=== PATIENT | male | born 1985 | race Hispanic/Latino ===

== ENCOUNTER 2017-04-13 20:53 | Emergency (ER) | payer SELFPAY ==
[2017-04-13 22:17] LABS: RAPID GROUP A STREP NEGATIVE (NEGATIVE)
== END 2017-04-13 22:46 | disposition home or self-care (01) ==
LOC: EDH 20:53
DX: J02.0 Streptococcal pharyngitis (principal)
CPT/HCPCS: 71046; 87804; 87880

== ENCOUNTER 2019-07-31 07:46 | Emergency (ER) | payer MEDICAID, OTHER ==
[2019-07-31] MEDS ORDERED: MECLIZINE HCL 25 MG TABLET ONE (08:25)
[2019-07-31] MEDS ORDERED: SODIUM CHLORIDE 0.9% 1000ML 1,000 ML IV ONE (08:26)
[2019-07-31 08:48] LABS: BASOPHILS % (AUTO) 0.4 % (0.0-5.0); EOSINOPHILS % (AUTO) 1.2 % (0.0-8.0); HEMATOCRIT 48.9 % (42-54); LYMPHOCYTES % (AUTO) 36.5 % (21.0-51.0); MEAN CORPUSCULAR HEMOGLOBIN 28.6 pg (27.0-33.0); MEAN CORPUSCULAR HGB CONC 33.3 g/dL (32.0-36.0); MEAN CORPUSCULAR VOLUME 85.8 fL (79-99); MONOCYTES % (AUTO) 9.2 % (3.0-13.0); NEUTROPHILS % (AUTO) 52.3 % (40.0-77.0); PLATELET COUNT (AUTO) 140 K/uL (130-400); RED CELL DISTRIBUTION WIDTH 13.7 % (11.0-15.5)
[2019-07-31 08:50] LABS: CREATININE 0.9 mg/dL (0.5-1.5); POTASSIUM 3.8 mmol/L (3.5-5.1)
[2019-07-31 08:54] LABS: ALBUMIN 3.9 g/dL (3.5-5.0); BILIRUBIN,TOTAL 0.6 mg/dL (0.2-1.0); TOTAL PROTEIN, SERUM 7.6 g/dL (6.0-8.3)
[2019-07-31 10:31] LABS: AMPHET/METH SCREEN,URINE NEGATIVE (NEGATIVE); BARBITURATE SCREEN, URINE NEGATIVE (NEGATIVE); BENZODIAZEPINES SCREEN,URINE NEGATIVE (NEGATIVE); CANNABINOID SCREEN,URINE NEGATIVE (NEGATIVE); COCAINE SCREEN,URINE NEGATIVE (NEGATIVE); OPIATE SCREEN,URINE NEGATIVE (NEGATIVE); PHENCYCLIDINE SCREEN,URINE NEGATIVE (NEGATIVE)
[2019-07-31] MEDS ORDERED: KETOROLAC TROMETHAMINE 30MG/ML ONE (10:39)
== END 2019-07-31 11:37 | disposition home or self-care (01) ==
LOC: EDH 07:46
DX: J01.00 Acute maxillary sinusitis, unspecified (principal); R51 Headache; H81.10 Benign paroxysmal vertigo, unspecified ear
CPT/HCPCS: 36415; 70450; 80053; 80305; 82550; 84484; 85025; 93005; 96361; 96374; 99285; J1885; J7030

== ENCOUNTER 2022-10-08 04:06 | Emergency (ER) | payer BC ==
[~2022-10-08] VITALS: Ht 185.4 cm; Wt 167.4 kg
[2022-10-08 05:02] LABS: SARS-CoV-2, RNA, NAAT NEGATIVE SARS CoV-2 (NEGATIVE)
[2022-10-08 05:05] LABS: INFLUENZA TYPE A Negative For Type A (NEGATIVE); INFLUENZA TYPE B Negative For Type B (NEGATIVE)
[2022-10-08 05:18] VITALS: BP 130/57; PULSE 64; RESP 16; O2SAT 97
== END 2022-10-08 05:22 | disposition home or self-care (01) ==
LOC: EDH 04:06
DX: G47.33 Obstructive sleep apnea (adult) (pediatric) (principal); E66.9 Obesity, unspecified; Z68.42 Body mass index [BMI] 45.0-49.9, adult; Z20.822 Contact with and (suspected) exposure to COVID-19
CPT/HCPCS: 99283; 87635; 87804 ×2; C9803

== ENCOUNTER 2023-07-09 02:56 | Emergency (ER) | payer BC ==
[~2023-07-09] VITALS: Ht 185.4 cm; Wt 166.5 kg
[2023-07-09 03:32] LABS: APPEARANCE,URINE CLEAR (CLEAR); BILIRUBIN,URINE NEGATIVE (NEGATIVE); COLOR,URINE COLORLESS (YELLOW); GLUCOSE, URINE (UA) NEGATIVE (NEGATIVE); KETONES,URINE NEGATIVE (NEGATIVE); LEUKOCYTE ESTERASE ,URINE NEGATIVE Leu/uL (NEGATIVE); NITRATE,URINE NEGATIVE (NEGATIVE); OCCULT BLOOD,URINE NEGATIVE (NEGATIVE); PROTEIN,URINE NEGATIVE (NEGATIVE); UROBILINOGEN,URINE 0.2 mg/dL (0.2-1.0)
[2023-07-09 03:38] LABS: BACTERIA,URINE RARE /HPF (None Seen); SQUAMOUS EPITHELIAL CELL,UR RARE /HPF (0-2)
[2023-07-09] MEDS: ONDANSETRON 4MG INJ IVP ONE (04:04)
[2023-07-09] MEDS: FAMOTIDINE 20MG VIAL IV ONE (04:05)
[2023-07-09 04:31] LABS: POTASSIUM 4.2 mmol/L (3.5-5.1)
[2023-07-09 05:45] LABS: BASOPHILS # (AUTO) 0.03 K/uL (0.00-0.20); BASOPHILS % (AUTO) 0.3 % (0.0-5.0); EOSINOPHILS # (AUTO) 0.23 K/uL (0.00-0.70); EOSINOPHILS % (AUTO) 2.3 % (0.0-8.0); HEMATOCRIT 45.1 % (42-54); IMMATURE GRANULOCYTE ABSOLUTE 0.12 K/uL (0-1); LYMPHOCYTES # (AUTO) 3.5 K/uL (1.0-4.8); LYMPHOCYTES % (AUTO) 33.9 % (21.0-51.0); MEAN CORPUSCULAR HEMOGLOBIN 28.6 pg (27.0-33.0); MEAN CORPUSCULAR HGB CONC 33.3 g/dL (32.0-36.0); MEAN CORPUSCULAR VOLUME 86.1 fL (79-99); MONOCYTES # (AUTO) 0.8 K/uL (0.1-1.0); MONOCYTES % (AUTO) 8.2 % (3.0-13.0); NEUTROPHILS # (AUTO) 5.5 K/uL (1.8-7.7); NEUTROPHILS % (AUTO) 54.1 % (40.0-77.0); PLATELET COUNT (AUTO) 188 K/uL (130-400); RED BLOOD CELL COUNT(AUTO) 5.24 MIL/uL (4.50-6.20); RED CELL DISTRIBUTION WIDTH 13.9 % (11.0-15.5); WHITE BLOOD COUNT (AUTO) 10.2 K/uL (4.8-10.8)
[2023-07-09 05:50] VITALS: BP 141/76; PULSE 63; RESP 16; O2SAT 100
[2023-07-09] MEDS ORDERED: DOCU-116 PO (06:00)
== END 2023-07-09 06:12 | disposition home or self-care (01) ==
LOC: EDH 02:56
DX: K59.00 Constipation, unspecified (principal)
CPT/HCPCS: 36415; 80048; 81001; 83690; 85025; 96374; 96375; J2405; J3490

== ENCOUNTER 2023-09-23 18:19 | Emergency (ER) | payer SELFPAY ==
[~2023-09-23] VITALS: Ht 185.4 cm; Wt 166.5 kg
[~2023-09-23 18:19] MED LIST: DOCU-116 PO
[2023-09-23 18:45] LABS: SARS-CoV-2, RNA, NAAT POSITIVE SARS CoV-2 (NEGATIVE)
[2023-09-23 18:48] LABS: INFLUENZA TYPE A Negative For Type A (NEGATIVE); INFLUENZA TYPE B Negative For Type B (NEGATIVE)
[2023-09-23] MEDS: ACETAMINOPHEN 500 MG TABLET PO ONE (19:49)
[2023-09-23] MEDS: 0.9%NACL 1000ML 1,000 ML IV ONE (19:49)
[2023-09-23 21:33] VITALS: BP 127/50; PULSE 74; RESP 18; O2SAT 97
== END 2023-09-23 21:35 | disposition home or self-care (01) ==
LOC: EDH 18:19
DX: U07.1 COVID-19 (principal)
CPT/HCPCS: 99285; 96360; 87635; 87804 ×2; J7030

== ENCOUNTER 2023-12-30 23:13 | Emergency (ER) | payer BC ==
[~2023-12-30] VITALS: Ht 185.4 cm; Wt 165.2 kg
--- NOTE | 2023-12-30 23:15 | NUR ---
UA CUP PROVIDED
[2023-12-30 23:45] LABS: APPEARANCE,URINE CLEAR (CLEAR); BILIRUBIN,URINE NEGATIVE (NEGATIVE); COLOR,URINE LIGHT-YELLOW (YELLOW); GLUCOSE, URINE (UA) NEGATIVE (NEGATIVE); KETONES,URINE NEGATIVE (NEGATIVE); LEUKOCYTE ESTERASE ,URINE NEGATIVE Leu/uL (NEGATIVE); NITRATE,URINE NEGATIVE (NEGATIVE); OCCULT BLOOD,URINE NEGATIVE (NEGATIVE); PROTEIN,URINE NEGATIVE (NEGATIVE)
--- NOTE | 2023-12-30 23:51 | HMCIMG ---
ABD 1VW HISTORY: The patient COMPARISON: None FINDINGS: A frontal projection of the abdomen was obtained. A nonspecific bowel gas pattern is seen. Fecal material is seen in the colon. IMPRESSION: 1. A nonspecific bowel gas pattern is seen. There are artifacts limiting evaluation.
[2023-12-30 23:57] LABS: ADD UA MICROSCOPIC YES
[2023-12-30 23:59] LABS: RBC,URINE 0-1 /HPF (0-1); SQUAMOUS EPITHELIAL CELL,UR RARE /HPF (0-2)
--- NOTE | 2023-12-31 00:01 | ERN ---
ED Note History of Present Illness Stated Complaint: FLANK PAIN, CONSTIPATION Chief Complaint: Multiple Complaints Time Seen by MD: 23:22 Dictation: This is a 38-year-old morbidly obese male who came into the ER complaining of left flank pain and severe constipation. His last bowel movement was on 12/28 but he stated that it was extremely hard and he was unable to expel . He denied any fever chills rigors no dysuria hematuria. No history of any nephrolithiasis. 98.2, heart rate is 78, respiratory rate 16, blood pressure 134/82 with a pulse oximetry of 99% on room Allergies: Coded Allergies: No Known Drug Allergies (Unverified Allergy, Unknown, 06/29/22) Home Meds Active Scripts Docusate Sodium (Colace) 100 Mg Capsule, 100 MG PO BID for 10 Days, #20 CAP Prov:GLORIA AUGUSTIN 07/09/23 Past Medical History Past Medical History: Constipation, Other Additional Past Medical Hx: SLEEP APNEA Surgical History: None Family History: Negative Social History: Negative RN Note Reviewed/Agreed w/PFSH: Yes Review of System Dictation Constitutional: Negative for fever,chills, and weight loss Eyes: Negative for injury, pain,redness, and discharge ENT: Negative for injury,pain or swelling Cardiovascular: Negative for chest pain, palpitations, and edema Respiratory: Negative for shortness of breath, cough, and wheezing, Abdomen/GI: Negative for abdominal pain, nausea, vomiting, diarrhea, and positive for constipation Back: Negative for injury and pain : Negative for injury, bleeding and discharge MS/Extremity: Negative for injury and deformity Skin: Negative for rash, and discoloration Neuro: Negative for headache, weakness, numbness, tingling, and seizure Psych: Negative for suicide ideation, homicidal ideation, and hallucinations Initial Vital Sign VS Vital Signs Date Time Temp Pulse Resp B/P (MAP) Pulse Ox O2 Delivery O2 Flow Rate FiO2 12/30/23 23:14 98.2 78 16 134/82 99 Room Air Physical Exam Dictation General: awake, alert, NAD Head/Face: Normocephalic, atraumatic Eyes: PERRL, EOMI, vision at baseline ENT: oral cavity clear, TMs clear, no signs of infection Neck: Trachea midline, supple, no nuchal rigidity Cardiovascular: RRR, normal S1/S2, No MRGs, no JVD Respiratory: CTAB, no respiratory distress, No rales or wheezes Abdomen: Soft, non-tender, non-distended, normal bowel sounds, no guarding or rebound. Skin: Warm, dry, normal turgor, no rash MS/Extremity: Pulses equal, no cyanosis, neurovascular intact, FROM Neuro: COAx4, GCS 15, strength 5/5, CN 2-12 intact, normal cerebellar exam, normal gait, Psych: Normal behavior, mood, and affect normal Extremities-trace edema without any palpable cords, Homans sign is negative Results (Laboratory/Radiology) Laboratory/Radiology Laboratory Tests Test 12/30/23 23:37 12/31/23 00:16 Urine Color LIGHT-YELLOW (YELLOW) Urine Appearance CLEAR (CLEAR) Urine pH 6.0 (5.0-8.0) Urine Specific Cadet 1.019 (1.001-1.031) Urine Protein NEGATIVE mg/dL (NEGATIVE) Urine Glucose (UA) NEGATIVE mg/dL (NEGATIVE) Urine Ketones NEGATIVE mg/dL (NEGATIVE) Urine Occult Blood NEGATIVE (NEGATIVE) Urine Nitrate NEGATIVE (NEGATIVE) Urine Bilirubin NEGATIVE mg/dL (NEGATIVE) Urine Urobilinogen 2.0 mg/dL (0.2-1.0) H Urine Leukocyte Esterase NEGATIVE Skylar/uL Urine RBC 0-1 /HPF (0-1) Urine WBC 2-5 /HPF (0-1) H Urine Squamous Epithelial Cells RARE /HPF (0-2) Urine Bacteria None /HPF (None Seen) White Blood Count 9.0 K/uL (4.8-10.8) Red Blood Count 5.31 MIL/uL (4.50-6.20) Hemoglobin 15.5 g/dL (14.0-18.0) Hematocrit 45.4 % (42-54) Mean Corpuscular Volume 85.5 fL (79-99) Mean Corpuscular Hemoglobin 29.2 pg (27.0-33.0) Mean Corpuscular Hemoglobin Concent 34.1 g/dL (32.0-36.0) Red Cell Distribution Width 13.9 % (11.0-15.5) Platelet Count 177 K/uL (130-400) Mean Platelet Volume 10.3 fL (7.5-10.5) Immature Granulocyte % (Auto) 0.7 % (0-1) Neutrophils (%) (Auto) 52.9 % (40.0-77.0) Lymphocytes (%) (Auto) 32.3 % (21.0-51.0) Monocytes (%) (Auto) 11.9 % (3.0-13.0) Eosinophils (%) (Auto) 1.9 % (0.0-8.0) Basophils (%) (Auto) 0.3 % (0.0-5.0) Neutrophils # (Auto) 4.8 K/uL (1.8-7.7) Lymphocytes # (Auto) 2.9 K/uL (1.0-4.8) Monocytes # (Auto) 1.1 K/uL (0.1-1.0) H Eosinophils # (Auto) 0.17 K/uL (0.00-0.70) Basophils # (Auto) 0.03 K/uL (0.00-0.20) Absolute Immature Granulocyte (auto 0.06 K/uL (0-1) Nucleated Red Blood Cells 0.0 % (0.0-0.19) Sodium Level 138 mmol/L (136-145) Potassium Level 3.9 mmol/L (3.5-5.1) Chloride Level 102 mmol/L (101-111) Carbon Dioxide Level 29 mmol/L (21-32) Blood Urea Nitrogen 16 mg/dL (7-18) Creatinine 0.9 mg/dL (0.5-1.3) Glomerular Filtration Rate Calc 112 mL/min (>90) Random Glucose 108 mg/dL (70-105) H Total Calcium 9.0 mg/dL (8.5-10.1) Labs Reviewed?: Yes X-RAY Comment: 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 A nonspecific bowel gas pattern is seen. Fecal material is seen in the colon. IMPRESSION: 1. A nonspecific bowel gas pattern is seen. There are artifacts limiting evaluation. DICTATED BY: LEATHA HAMMOND MD DATE: 12/30/232347 ELECTRONICALLY SIGNED BY: LEATHA HAMMOND MD DATE: 12/30/232350 ED Course ED Course Orders Procedure Category Date Status Time Cbc With Differential LAB 12/30/23 Complete 23:15 Basic Metabolic Panel LAB 12/30/23 Complete 23:15 Urinalysis Profile LAB 12/30/23 Complete 23:15 Abd 1vw RAD 12/30/23 Resulted 23:15 Lactulose 20 Gm/30 Ml PHA 12/31/23 Complete Udcup (Constulose 00:00 Current Medications Medications (Trade) Dose Ordered Sig/Amara Route PRN Reason Start Time Stop Time Status Last Admin Dose Admin Lactulose (Constulose 20gm/ 30ml Udcup) 20 gm ONCE ONCE PO 12/31/23 00:00 12/31/23 00:01 DC 12/31/23 00:10 Vital Signs Date Time Temp Pulse Resp B/P (MAP) Pulse Ox O2 Delivery O2 Flow Rate FiO2 12/30/23 23:14 98.2 78 16 134/82 99 Room Air We will perform diagnostic labs, advanced imaging and administer medications according to the patient's complaint. Once the results are available, will review and personally interpreted the labs to rule out any acute life-threate chayito emergency the trach require immediate intervention and treatment. I will then re-evaluate the patient after treatment and diagnostic exams have return to determine whether the patient requires any further testing, can safely be discharged home or need further admission to hospital for additional treatment and evaluation. 12:32 a.m. labs reviewed CBC and urinalysis are negative. BNP 7 is pending . KUB showed nonspecific changes and fecal material. I explained in detail to the patient the findings of KUB and all the labs and available results. Trial of lactulose for now now also counseled him on increasing the fluid intake fiber and vegetables. Medical Decision Making MDM MDM: Differential diagnosis: Colitis constipation diverticulitis, nephrolithiasis renal colic Rationale: Tests considered and ordered secondary to shared decision making in clude: Previous outside records reviewed: Old ER visits. Risk of complication and/or morbidity or mortality of patient management: None Medications-Per medication reconciliation Need for hospitalization: Patient does not meet criteria for hospitalization. Need for emergency major/minor surgery: No There are no social concerns with this patient. Prescription drug management Prescriptions will include symptomatic care Patient's prior external medical records from other ER visits were reviewed by me as indicated. Prior testing and results from previous visits were reviewed. Prior tests were taken into account with medical decision making and resource utilization, independent historian/historians were used to obtain complete medical history. I independently interpreted the test that were performed, results were reviewed by me and considered findings on radiology if ordered. Medical management and examination interpretation discussions were had by me with other qualified healthcare professionals as indicated for the patient's care. Problem List Problem List: (1) Constipation (2) AMALIA (obstructive sleep apnea) DX & DISP Disposition: Discharge Departure Impression: Primary Impression: Constipation Additional Impression: AMALIA (obstructive sleep apnea) Condition: Stable Additional Instructions: Patient and the caregiver have been informed of all the diagnostic tests and the imaging conducted during the today's visit to the emergency room and has verbalized understanding of the results I have personally reviewed and interpreted all diagnostic exams performed here in the ER today as well as the vital signs documented by the nursing staff. The patient is now being discharged to home and should follow up with the primary care physician or the specialist as directed by the ER staff. Follow-up with primary care provider in 1 to 2 days. Take medications as directed here in the emergency room. Okay to continue home medications unless otherwise discussed during your visit in the emergency room today. Return to your nearest emergency room if symptoms worsen or if there is no improvement. Call 911 if you need immediate assistance. Take Tylenol or Motrin [id number] as needed and if no contraindications are present. Increase oral hydration. A wound culture or urine culture was ordered here in the emergency room department please follow-up with primary care provider and advise them to get repeat ports from our facility. If you had any Connor wrap/splints that were applied here, please do not remove them until you see your primary care or specialty. Counseling on dietary modifications and increase fiber and fluid intake Referrals: SELF,REFERRAL (PCP) NEDA CROWDER MD Dec 31, 2023 00:01
[2023-12-31] MEDS: LACTULOSE 20 GM/30 ML UDCUP PO ONE (00:10)
[2023-12-31 00:24] LABS: BASOPHILS # (AUTO) 0.03 K/uL (0.00-0.20); BASOPHILS % (AUTO) 0.3 % (0.0-5.0); EOSINOPHILS # (AUTO) 0.17 K/uL (0.00-0.70); EOSINOPHILS % (AUTO) 1.9 % (0.0-8.0); HEMATOCRIT 45.4 % (42-54); IMMATURE GRANULOCYTE ABSOLUTE 0.06 K/uL (0-1); LYMPHOCYTES # (AUTO) 2.9 K/uL (1.0-4.8); LYMPHOCYTES % (AUTO) 32.3 % (21.0-51.0); MEAN CORPUSCULAR HEMOGLOBIN 29.2 pg (27.0-33.0); MEAN CORPUSCULAR HGB CONC 34.1 g/dL (32.0-36.0); MEAN CORPUSCULAR VOLUME 85.5 fL (79-99); MONOCYTES # (AUTO) 1.1 K/uL (0.1-1.0); MONOCYTES % (AUTO) 11.9 % (3.0-13.0); NEUTROPHILS # (AUTO) 4.8 K/uL (1.8-7.7); NEUTROPHILS % (AUTO) 52.9 % (40.0-77.0); PLATELET COUNT (AUTO) 177 K/uL (130-400); RED BLOOD CELL COUNT(AUTO) 5.31 MIL/uL (4.50-6.20); RED CELL DISTRIBUTION WIDTH 13.9 % (11.0-15.5)
[2023-12-31 00:36] LABS: CREATININE 0.9 mg/dL (0.5-1.3); POTASSIUM 3.9 mmol/L (3.5-5.1)
[2023-12-31 01:16] VITALS: BP 118/76; PULSE 88; RESP 18; TEMP 98.4; O2SAT 98
== END 2023-12-31 01:22 | disposition home or self-care (01) ==
LOC: EDH 23:13
DX: K59.00 Constipation, unspecified (principal); G47.33 Obstructive sleep apnea (adult) (pediatric); Z79.899 Other long term (current) drug therapy
CPT/HCPCS: 36415; 74018; 80048; 81001; 85025; 99283; 99284

== ENCOUNTER 2024-01-17 06:25 | Emergency (ER) | payer BC ==
[~2024-01-17] VITALS: Ht 185.4 cm; Wt 165.1 kg
[2024-01-17] MEDS ORDERED: DOCU-116 PO (06:41)
[2024-01-17] MEDS ORDERED: INUL2TAB5 PO (06:41)
[2024-01-17] MEDS ORDERED: BISA-189 PO (06:41)
--- NOTE | 2024-01-17 06:42 | ERN ---
ED Note History of Present Illness Stated Complaint: STOMACH PAIN Chief Complaint: Constipation Time Seen by MD: 06:42 Dictation: This is a 38-year-old morbidly obese male who came into the ER complaining of left flank pain and severe constipation. His last bowel movement was a few weeks ago. but he stated that it was extremely hard and he was unable to expel. He has tried laxatives but reports that he only passes gas. He also reports abdominal pain in the upper abdomen. .He denied any fever chills rigors no dysuria hematuria. No history of any nephrolithiasis. 98.2, heart rate is 78, respiratory rate 16, blood pressure 134/82 with a pulse oximetry of 99% on room Allergies: Coded Allergies: No Known Drug Allergies (Unverified Allergy, Unknown, 06/29/22) Home Meds Active Scripts Bisacodyl (Dulcolax 5Mg Tab) 5 Mg Tablet.dr, 2 TAB PO AD for constipation, #2 TAB 0 Refills Prov:NEDA CROWDER MD 01/17/24 Docusate Sodium (Colace) 100 Mg Capsule, 100 MG PO BID for constipation, #30 CAP 0 Refills Prov:NEDA CROWDER MD 01/17/24 Inulin (Fiber Gummies) 2 Gram Tab.chew, 1 TAB PO DAILY for 30 Days, #30 TAB 0 Refills Prov:NEDA CROWDER MD 01/17/24 Docusate Sodium (Colace) 100 Mg Capsule, 100 MG PO BID for 10 Days, #20 CAP Prov:GLORIA AUGUSTIN 07/09/23 Past Medical History Past Medical History: Constipation, Other Additional Past Medical Hx: SLEEP APNEA Surgical History: None Family History: Negative Social History: Negative RN Note Reviewed/Agreed w/PFSH: Yes Review of System Dictation Constitutional: Negative for fever,chills, and weight loss Eyes: Negative for injury, pain,redness, and discharge ENT: Negative for injury,pain or swelling Cardiovascular: Negative for chest pain, palpitations, and edema Respiratory: Negative for shortness of breath, cough, and wheezing, Abdomen/GI: Negative for abdominal pain, nausea, vomiting, diarrhea, and positive for constipation Back: Negative for injury and pain : Negative for injury, bleeding and discharge MS/Extremity: Negative for injury and deformity Skin: Negative for rash, and discoloration Neuro: Negative for headache, weakness, numbness, tingling, and seizure Psych: Negative for suicide ideation, homicidal ideation, and hallucinations Initial Vital Sign VS Vital Signs Date Time Temp Pulse Resp B/P (MAP) Pulse Ox O2 Delivery O2 Flow Rate FiO2 01/17/24 06:36 97.5 71 16 139/85 96 Room Air 0 01/17/24 06:58 21 Physical Exam Dictation General: awake, alert, NAD morbidly obese male Head/Face: Normocephalic, atraumatic Eyes: PERRL, EOMI, vision at baseline ENT: oral cavity clear, TMs clear, no signs of infection Neck: Trachea midline, supple, no nuchal rigidity Cardiovascular: RRR, normal S1/S2, No MRGs, no JVD Respiratory: CTAB, no respiratory distress, No rales or wheezes Abdomen: Soft, non-tender, obese, normal bowel sounds, no guarding or rebound. Skin: Warm, dry, normal turgor, no rash MS/Extremity: Pulses equal, no cyanosis, neurovascular intact, FROM Neuro: COAx4, GCS 15, strength 5/5, CN 2-12 intact, normal cerebellar exam, normal gait, Psych: Normal behavior, mood, and affect normal Extremities-trace edema without any palpable cords, Homans sign is negative Results (Laboratory/Radiology) Laboratory/Radiology Laboratory Tests Test 01/17/24 06:55 Sodium Level 139 mmol/L (136-145) Potassium Level 4.0 mmol/L (3.5-5.1) Chloride Level 102 mmol/L (101-111) Carbon Dioxide Level 34 mmol/L (21-32) H Blood Urea Nitrogen 8 mg/dL (7-18) Creatinine 0.9 mg/dL (0.5-1.3) Glomerular Filtration Rate Calc 112 mL/min (>90) Random Glucose 123 mg/dL (70-105) H Total Calcium 9.0 mg/dL (8.5-10.1) Thyroid Stimulating Hormone (TSH) 2.65 uIU/mL (0.36-3.74) Labs Reviewed?: Yes ED Course ED Course Orders Procedure Category Date Status Time Basic Metabolic Panel LAB 01/17/24 Complete 06:41 Thyroid Stimulating LAB 01/17/24 Complete Hormone 06:41 Magnesium Citrate PHA 01/17/24 Complete (Magnesium Citrate) 07:00 Ct Abd/Pel Wo Con CT 01/17/24 Resulted Renal/Appy 07:22 Current Medications Medications (Trade) Dose Ordered Sig/Amara Route PRN Reason Start Time Stop Time Status Last Admin Dose Admin Magnesium Citrate (Magnesium Citrate) 296 ml ONCE ONCE PO 01/17/24 07:00 01/17/24 07:01 DC 01/17/24 06:58 Vital Signs Date Time Temp Pulse Resp B/P (MAP) Pulse Ox O2 Delivery O2 Flow Rate FiO2 01/17/24 06:58 98.2 84 18 123/82 98 Room Air* 0 21 01/17/24 06:36 97.5 71 16 139/85 96 Room Air 0 We will administer medications according to the patient's complaint. Once the results are available, will review and personally interpreted the labs to rule out any acute life-threatening emergency the trach require immediate intervention and treatment. I will then re-evaluate the patient after treatment and diagnostic exams have return to determine whether the patient requires any further testing, can safely be discharged home or need further admission to hospital for additional treatment and evaluation. Trial of Mag citrate, check BNP 7 and a TSH level. We will consider CT scan of the abdomen if no response to Mag citrate Medical Decision Making MDM MDM: Differential diagnosis: Poor fluid intake, fiber intake, poor dietary habits, lack of exercise Rationale: Tests considered and ordered secondary to shared decision making include: Previous outside records reviewed: Old ER visits. Risk of complication and/or morbidity or mortality of patient management: None Medications-Per medication reconciliation Need for hospitalization: Patient does not meet criteria for hospitalization. Need for emergency major/minor surgery: No There are no social concerns with this patient. Prescription drug management Prescriptions will include symptomatic care Patient's prior external medical records from other ER visits were reviewed by me as indicated. Prior testing and results from previous visits were reviewed. Prior tests were taken into account with medical decision making and resource utilization, independent historian/historians were used to obtain complete medical history. I independently interpreted the test that were performed, results were reviewed by me and considered findings on radiology if ordered. Medical management and examination interpretation discussions were had by me with other qualified healthcare professionals as indicated for the patient's care. Patient handed off at shift change pending reassessment and CT scan, negative workup and CT scan is negative stable for outpatient treatment for acute constipation abdominal pain. Problem List Problem List: (1) Constipation (2) AMALIA (obstructive sleep apnea) DX & DISP Disposition: Discharge Departure Impression: Primary Impression: Constipation Additional Impression: AMALIA (obstructive sleep apnea) Condition: Stable Scripts Bisacodyl (Dulcolax 5Mg Tab) 5 Mg Tablet.dr 2 TAB PO AD for constipation, #2 TAB 0 Refills Prov: NEDA CROWDER MD 01/17/24 Docusate Sodium (Colace) 100 Mg Capsule 100 MG PO BID for constipation, #30 CAP 0 Refills Prov: NEDA CROWDER MD 01/17/24 Inulin (Fiber Gummies) 2 Gram Tab.chew 1 TAB PO DAILY for 30 Days, #30 TAB 0 Refills Prov: NEDA CROWDER MD 01/17/24 Additional Instructions: Patient and the caregiver have been informed of all the diagnostic tests and the imaging conducted during the today's visit to the emergency room and has verbalized understanding of the results I have personally reviewed and interpreted all diagnostic exams performed here in the ER today as well as the vital signs documented by the nursing staff. The patient is now being discharged to home and should follow up with the primary care physician or the specialist as directed by the ER staff. Follow-up with primary care provider in 1 to 2 days. Take medications as dire cted here in the emergency room. Okay to continue home medications unless otherwise discussed during your visit in the emergency room today. Return to your nearest emergency room if symptoms worsen or if there is no improvement. Call 911 if you need immediate assistance. Take Tylenol or Motrin [id number] as needed and if no contraindications are present. Increase oral hydration. A wound culture or urine culture was ordered here in the emergency room department please follow-up with primary care provider and advise them to get repeat ports from our facility. If you had any Connor wrap/splints that were applied here, please do not remove them until you see your primary care or specialty. Increase fluid intake, daily fiber and increase activity Referrals: SELF,REFERRAL (PCP) NEDA CROWDER MD Jan 17, 2024 06:42 ALLAN TORRES MD Jan 17, 2024 09:05
[2024-01-17] MEDS: MAGNESIUM CITRATE 296 ML SOLUTION PO ONE (06:58)
[2024-01-17 07:24] LABS: CREATININE 0.9 mg/dL (0.5-1.3); THYROID STIMULATING HORMONE 2.65 uIU/mL (0.36-3.74)
--- NOTE | 2024-01-17 08:42 | HMCIMG ---
CT ABD/PEL WO CON RENAL/APPY HISTORY: Diffuse pain and constipation COMPARISON: 06/29/2022 TECHNIQUE: Multiple sequential axial images of the abdomen and pelvis were obtained from the dome of the diaphragm through symphysis pubis. Patient was not given contrast through intravenous route. Oral contrast was not given. FINDINGS: No pleural effusion is seen bilaterally. There is no evidence of parenchymal disease or pulmonary nodule of the visualized lower lungs. Degenerative changes of the thoracolumbar spine are present. The heart is not enlarged. Liver is enlarged measuring 21 cm. The liver, spleen, adrenal glands and pancreas are unremarkable. There is no evidence of hydronephrosis bilaterally. No evidence of renal stone is seen. Fecal material is seen in the colon. There are normal size retroperitoneal and mesenteric lymph nodes. No ascites is seen. No CT evidence of acute appendicitis is seen. Pelvic sidewalls are symmetric bilaterally. Bladder is well distended without wall thickening. IMPRESSION: 1. No acute findings. CT was performed with one or more following dose reduction techniques: automated exposure control, adjustment of the mA and kv according to patient's size, or use of a iterative reconstruction technique.
[2024-01-17 09:08] VITALS: BP 129/80; PULSE 77; RESP 16; TEMP 98.2; O2SAT 98
== END 2024-01-17 09:09 | disposition home or self-care (01) ==
LOC: EDH 06:25
DX: K59.00 Constipation, unspecified (principal); G47.33 Obstructive sleep apnea (adult) (pediatric); Z79.899 Other long term (current) drug therapy
CPT/HCPCS: 36415; 74176; 80048; 84443; 99284